=== PATIENT | male | born 1940 | race African-American/Black ===

== ENCOUNTER 2018-03-12 19:51 | Inpatient (IN) | payer MEDICARE, OTHER ==
[~2018-03-12 19:51] MED LIST: ISOVUE-370 76%-LOCM 1 ML ONE
[2018-03-12 20:07] LABS: #Monocytes 0.2 thou/uL (0.11-0.59); #Neutrophils 2.2 thou/uL (1.40-6.50); %Basophils 0.9 % (0.0-1.0); %Eosinophils 0.3 % (0.0-10.0); %Lymphocytes 44.4 % (21.0-51.0); %Monocytes 5.2 % (0.0-10.0); %Neutrophils 49.1 % (42.0-75.0); Hemoglobin 10.9 g/dL (14.0-18.0); Mean Corpuscular HGB CONC 32.3 g/dL (32.0-36.0); Mean Corpuscular Hemoglobin 31.3 pg (27.0-31.0); Mean Corpuscular Volume 96.8 fL (78.0-98.0); Mean Platelet Volume 8.2 fL (7.4-10.4); Platelet Count 125 thou/uL (130-400); RBC Distribution Width 14.4 % (11.5-14.5); Red Blood Cell (RBC) Count 3.49 mill/uL (4.70-6.10); White Blood Cell (WBC) Count 4.5 thou/uL (4.8-10.8)
[2018-03-12 20:11] LABS: PTT 26.2 SEC (22.9-36.1); Prothrombin Time 13.4 SEC (12.0-14.7)
[2018-03-12 20:20] LABS: ALT (SGPT) 46 U/L (8-55); AST (SGOT) 28 U/L (5-34); Albumin 3.9 g/dL (3.4-4.8); Alkaline Phosphatase 214 U/L (40-150); Anion Gap 10 mmol/L (10-20); BUN (Urea Nitrogen) 18 mg/dL (8.4-25.7); Bilirubin, Total 0.2 mg/dL (0.2-1.2); Calc. Creatinine Clearance 0 mL/min (70-130); Calcium 8.9 mg/dL (7.8-10.44); Carbon Dioxide 22 mmol/L (23-31); Chloride 103 mmol/L (98-107); Estimated GFR-MDRD 29; Globulin 2.8 g/dL (2.4-3.5); Potassium 5.4 mmol/L (3.5-5.1); Protein, Total 6.7 g/dL (5.8-8.1); Sodium 130 mmol/L (136-145)
[2018-03-12 20:22] LABS: CKMB 0.7 ng/mL (0-6.6); Troponin I 0.015 ng/mL (< 0.028)
[2018-03-12 20:23] LABS: Glucose 741 mg/dL (83-110)
[2018-03-12 20:43] LABS: Base Excess-Venous -3.4 mmol/L (0 (+/- 2.5)); CO2 Tension (PvCO2) 40.1 mmHg (41.0-51.0); Calcium, Ionized 1.27 mmol/L (1.12-1.32); Hemoglobin - Calc 10.9 g/dL (12.0-18.0); O2 Tension (PvO2) 40.7 mmHg (35.0-45.0); Potassium 5.1 mmol/L (3.4-4.7); T. Carbon Dioxide 23.2 mmol/L (1.0-85.0); pH (Venous) 7.347 (7.35-7.45); vO2 Saturation-calc 73.3 % (94-98)
[2018-03-12] MEDS ORDERED: niCARdipine 20MG In NaCl 20 MG/200 ML BAG ONE (21:00)
--- NOTE | 2018-03-12 21:24 | CT ---
NONCONTRAST HEAD CT 03/12/18 HISTORY: Right sided weakness and facial droop, aphasia, recent kidney transplant. COMPARISON: None. FINDINGS: No parenchymal hemorrhage. No extra-axial hematoma. No midline shift. Basilar cisterns are patent. Ag e appropriate atrophy. Cortical pate-white matter differentiation is preserved. Ventricles and sulci are patent and symmetric. Calvarium is intact. Adequate aeration of the sinuses and mastoid air cells . IMPRESSION: No acute intracranial process. Results of the study discussed with Dr. Navarrete, 03/12/18 at 7:59 p.m. Code VENESSA POS: [facility]
--- NOTE | 2018-03-12 22:17 | CT ---
CT ANGIOGRAM OF THE HEAD AND NECK: 03/12/18 HISTORY: Right sided weakness. Facial droop. Aphasia. Recent kidney transplant. Evaluate for thrombus. COMPARISON: None. TECHNIQUE: CT angiogram of the head and neck are performed in the axial plane. Three dimensional reformatted misha ges are submitted for interpretation. FINDINGS: POSTCONTRAST HEAD CT: There is an enhancing lesion along the right frontal extra-axial space most compatible with a meningi lake measuring 1.5 x 0.5 cm. No significant mass effect. Cortical pate-white matter differentiation is preserved. No evidence of hydrocephalus. Bilateral ocular lenses are appropriately located. Both lenses are transplanted lenses. Adequate aera tion of the sinuses and mastoid air cells. Aerodigestive tract is patent. No obvious mucosal abnormality. Limited evaluation of the oral cavity. Midline fatty raphae of the tongue is preserved. Unremarkable epiglottis. No prevertebral soft tissu e swelling. Symmetric attenuation of the sternocleidomastoid muscles. Symmetric attenuation of the parotid and submandibular glands. Unremarkable thyroid gland. No evidence of lymphadenopathy by size criteria. There are varying degrees of central canal stenosis and foraminal narrowing on the basis of degenerat belkys change. Cervical spine vertebral body height is maintained. No fracture. Upper mediastinum and axel ng apices are otherwise unremarkable. CT ANGIOGRAM: There is atherosclerosis of a nonaneurysmal thoracic aorta. The origin of the right carotid artery is unremarkable. The right common carotid artery, carotid bifurcation, and internal carotid artery have an overall appropriate enhancement and luminal diameter. Minimal atherosclerosis in the right caroti d bulb and distal common carotid artery. No significant stenosis based upon NASCET criteria. LEFT CAROTID: The origin of the left carotid artery has appropriate enhancement and luminal diameter. The left comm on carotid artery, carotid bifurcation, and internal carotid artery have overall appropriate enhancem ent and luminal diameter. Minimal atherosclerosis in the distal common carotid artery. No significant stenosis based upon NASCET criteria. Bilateral subclavian arteries are unremarkable. Both vertebral arteries are patent throughout their c ourse in the neck and are essentially codominant. CT ANGIOGRAM OF THE HEAD: There is symmetric enhancement and luminal diameter of the distal cervical and intracranial internal carotid arteries. Mild atherosclerosis in both cavernous segments and pericline segments is noted wit hout significant stenosis. ANTERIOR CIRCULATION: Symmetric enhancement and luminal diameter of the A1 and M1 segments. Proximal MCA branches are essen tially symmetric. A1 segments and possible A2 segments are patent. POSTERIOR CIRCULATION; Both intracranial vertebral arteries are unremarkable. Both PICA artery origins are patent. Both sherif tebral arteries supply a normal appearing basilar artery. No significant stenosis. The left and right P1 segments are symmetric. IMPRESSION: Unremarkable CT angiogram of the head and neck. Results of study discussed with Dr. Darrell Thomas, 03/12/18 at 9:07 p.m. POS: [facility]
[2018-03-12 22:30] LABS: Bilirubin Negative (Negative); Blood, Urine Negative (Negative); Clarity CLEAR (Clear); Glucose, Urine (Dipstick) >=1000 mg/dL (Negative); Leukocyte Negative (Negative); Nitrite Negative (Negative); Protein, Urine (Dipstick) Negative (Neg-Trace); Specific Gravity, Urine 1.028 (1.002-1.036); Urobilinogen 0.2 mg/dL (0.2-1.0); pH, Urine 6.5 (5.0-9.0)
[2018-03-12] MEDS ORDERED: Ondansetron HCl/PF 4 MG/2 ML Vial ONE (22:56)
[2018-03-13] MEDS ORDERED: Ondansetron HCl/PF 4 MG/2 ML Vial IVP PRN (01:51)
[2018-03-13] MEDS ORDERED: Ondansetron ODT 4 MG TAB SL PRN (01:51)
[2018-03-13] MEDS ORDERED: Sodium Chloride 0.9% 1,000 ML IV SCH ×4 (01:51→05:15)
[2018-03-13 02:12] VITALS: BMI 25.7
[2018-03-13] MEDS ORDERED: Insulin Regular 300 UNITS/3 ML VIAL SC PRN ×2 (02:57)
[2018-03-13] MEDS ORDERED: Dextrose 5% in Water 1,000 ML IV PRN ×2 (02:57→11:17)
[2018-03-13] MEDS ORDERED: Dextrose 50% Abboject 50 ML SYRINGE SLOW IVP PRN ×2 (02:57→11:17)
[2018-03-13] MEDS ORDERED: Acetaminophen 1,000 MG in Premix Bag 1 BAG IVPB SCH (03:15)
[2018-03-13 03:25] LABS: #Lymphocytes 0.7 thou/uL (1.20-3.40); #Monocytes 0.5 thou/uL (0.11-0.59); #Neutrophils 8.6 thou/uL (1.40-6.50); %Basophils 0.2 % (0.0-1.0); %Eosinophils 0.1 % (0.0-10.0); %Lymphocytes 7.3 % (21.0-51.0); %Monocytes 5.1 % (0.0-10.0); %Neutrophils 87.4 % (42.0-75.0); Hemoglobin 10.4 g/dL (14.0-18.0); Mean Corpuscular HGB CONC 33.9 g/dL (32.0-36.0); Mean Corpuscular Hemoglobin 32.9 pg (27.0-31.0); Mean Corpuscular Volume 97.2 fL (78.0-98.0); Mean Platelet Volume 7.6 fL (7.4-10.4); Platelet Count 144 thou/uL (130-400); RBC Distribution Width 14.5 % (11.5-14.5); Red Blood Cell (RBC) Count 3.15 mill/uL (4.70-6.10); White Blood Cell (WBC) Count 9.8 thou/uL (4.8-10.8)
[2018-03-13] MEDS ORDERED: Diltiazem 125 MG in Sodium Chloride 0.9% 100 ML IVPB SCH ×2 (03:30→03:36)
[2018-03-13 03:46] LABS: Anion Gap 21 mmol/L (10-20); BUN (Urea Nitrogen) 18 mg/dL (8.4-25.7); Calc. Creatinine Clearance 34 mL/min (70-130); Calcium 9.1 mg/dL (7.8-10.44); Carbon Dioxide 14 mmol/L (23-31); Chloride 106 mmol/L (98-107); Estimated GFR-MDRD 33; Magnesium 1.2 mg/dL (1.6-2.6); Potassium 5.5 mmol/L (3.5-5.1); Sodium 135 mmol/L (136-145)
[2018-03-13 03:48] LABS: Glucose 677 mg/dL (83-110)
[2018-03-13 03:49] LABS: Troponin I 0.066 ng/mL (< 0.028)
[2018-03-13] MEDS ORDERED: NPH, Human Insulin Isophane 300 UNIT/3 ML VIAL SC SCH (04:00)
[2018-03-13] MEDS ORDERED: Acetaminophen 325 MG/10.15 ML UDCUP PO PRN (04:03)
[2018-03-13] MEDS ORDERED: Acetaminophen 650 MG Suppository PR PRN (04:03)
[2018-03-13] MEDS ORDERED: Bisacodyl 10 MG SUPP PR PRN (04:03)
[2018-03-13] MEDS ORDERED: Calcium Carbonate 500 MG ChewTAB PO PRN (04:07)
[2018-03-13] MEDS ORDERED: Labetalol HCl 100 MG/20 ML VIAL SLOW IVP PRN (04:09)
[2018-03-13] MEDS ORDERED: Insulin Regular 300 UNITS/3 ML VIAL ONE (04:09)
[2018-03-13] MEDS ORDERED: Acetaminophen 1,000 MG in Premix Bag 1 BAG IVPB PRN (04:26)
[2018-03-13] MEDS ORDERED: Magnesium 2 GM/NS 0.9% 100 ML 2 GM in Premix Bag 1 BAG IVPB SCH (04:30)
--- NOTE | 2018-03-13 04:36 | HP ---
DATE OF ADMISSION: 03/13/2018 PRIMARY CARE PHYSICIAN: Stacy Kay M.D. PRIMARY MIXING AND DISPENSING SUPERVISOR: Brock Schmidt M.D. CHIEF COMPLAINT: Sudden onset of right-sided weakness. HISTORY OF PRESENT ILLNESS: The patient is a 77-year-old -[place] male with hypertension, recent renal transplant, diabetes mellitus type 2, and hyperlipidemia, who presented to the ER by EMS with sudden onset of right-sided weakness and aphasia. He was last seen normal around 6:30 p.m. He had uncontrollable shaking at the onset. No family is present at the bedside for further details. The history obtained from the ER chart. In the emergency room, he received TPA. He was placed on Cardene drip due to uncontrolled blood pressure that was later discontinued. CT scan of the brain was negative for acute findings. His NIH in the emergency room was 24. PAST MEDICAL HISTORY: 1. Diabetes mellitus type 2. 2. Hypertension. 3. Hyperlipidemia. 4. Recent renal transplant. PAST SURGICAL HISTORY: 1. Dialysis access. 2. Bilateral carpal tunnel surgery. 3. Recent renal transplant. 4. Bilateral cataract surgery. ALLERGIES: No known drug allergies. HOME MEDICATIONS: To be verified with the family. FAMILY HISTORY: Mother with diabetes. SOCIAL HISTORY: He quit drinking in 1995, quit smoking in 1995. CODE STATUS: He is FULL CODE. DPOA to be verified. REVIEW OF SYSTEMS: Cannot be obtained from the patient due to current cognitive status. PHYSICAL EXAMINATION: VITAL SIGNS: In the emergency room on arrival showed temperature 97.7, respirations 25, pulse rate of 101 and blood pressure of 157/84 with O2 saturation 100% on room air. GENERAL: A 77-year-old male with altered mentation. Left-sided gaze preference noted. There is right-sided weakness. HEENT: Head atraumatic, normocephalic. Sclerae are anicteric. Left-sided gaze. NECK: Supple, no JVD appreciated. No carotid bruit. No neck stiffness. LUNGS: Showed scattered rales and rhonchi at bases. No wheezing. No accessory muscle use. HEART: S1, S2 present, tachycardic, 2/6 systolic murmur over the mitral area. No heaves or pulsation. ABDOMEN: Soft, bowel sounds present, no rebound or guarding. EXTREMITIES: No edema or calf tenderness. NEUROLOGIC: Could not be done reliably due to current cognitive status. He is spontaneously moving his left side. On the right side, he still has some spontaneous movement, but not against gravity. He withdraws to pain in the right upper extremity, but not to right lower extremity. He had hyperreflexia on the right side. SKIN: Warm and dry. LYMPH NODES: No palpable lymph nodes in the neck. PERIPHERAL VASCULAR: Radial pulses palpable bilaterally. MUSCULOSKELETAL: No joint swelling or tenderness. LABORATORY FINDINGS: CBC showed WBC of 4.5, hemoglobin of 10.9, hematocrit of 33.8, platelet of 125. PT, INR, PTT normal range. Chemistries showed sodium of 130, potassium 5.4, chloride 103, bicarbonate 22, BUN of 18, creatinine 2.59 and glucose of 741, magnesium 1.2, troponin of 0.015, repeat troponin 0.066. CT scan of the brain by my review was negative for acute CVA. EKG by my review showed sinus tachycardia without significant ST-T wave changes. Repeat EKG showed sinus tachycardia with heart rate in 130s to 140s. Urinalysis was negative. CT angiogram of the head and neck were essentially negative. IMPRESSION: 1. 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 2. Uncontrolled diabetes mellitus type 2 with suspected DKA. Ketones pending 3. Hypertension. 4. Chronic kidney disease stage 3 with recent renal transplant. 5. Hypomagnesemia with magnesium of 1.2. 6. Elevated troponin in the indeterminate range secondary to acute cerebrovascular accident/demand ischemia. 7. Hyponatremia with sodium 130. 8. Hyperkalemia with potassium 5.5. 9. Metabolic acidosis with bicarbonate of 14. 10. Supraventricular tachycardia. 11. Chronic anemia, probably secondary to renal insufficiency. 12. Hyperlipidemia. PLAN: The patient will be monitored in the Intensive Care Unit. Post-TPA protocol will be followed. We will consult Neurology. We will repeat CT brain in a.m. We will start him on low dose Cardizem drip. We will keep his blood pressure between 150-180 systolic. We will replace magnesium. We will recheck potassium in a.m. We will check lactic acid and ketones due to metabolic acidosis. We will repeat troponin in a.m. Nephrology will be consulted. We will get a chest x-ray to rule out aspiration as patient is running fever with the last temperature of 100.9. Insulin drip. Start low dose Cardizem drip for tachyarrhythmia. We will confirm all of his home medications. Deep venous thrombosis prophylaxis after 24 hours of TPA. Gastrointestinal prophylaxis. We will discuss the plan of care with the family when they arrive. BIJAN
[2018-03-13] MEDS ORDERED: cefTRIAXone\\ROCEPHIN 1 GM in Sodium Chloride 0.9% 100 ML IVPB SCH (05:00)
[2018-03-13 05:13] LABS: Lactic Acid 3.3 mmol/L (0.5-2.2)
[2018-03-13 07:31] LABS: Anion Gap 16 mmol/L (10-20); BUN (Urea Nitrogen) 17 mg/dL (8.4-25.7); Calc. Creatinine Clearance 36 mL/min (70-130); Calcium 8.4 mg/dL (7.8-10.44); Carbon Dioxide 15 mmol/L (23-31); Chloride 114 mmol/L (98-107); Estimated GFR-MDRD 36; Glucose 393 mg/dL (83-110); Potassium 4.6 mmol/L (3.5-5.1); Sodium 140 mmol/L (136-145)
[2018-03-13 07:38] LABS: Troponin I 0.284 ng/mL (< 0.028)
[2018-03-13 07:41] VITALS: TEMP 103.2
[2018-03-13] MEDS ORDERED: MEROPENEM 1 GM/50 ML 1 GM in Premix Bag 1 BAG IVPB SCH (08:00)
[2018-03-13] MEDS ORDERED: Famotidine/PF 20 mg/2ml Vial SLOW IVP SCH (09:00)
--- NOTE | 2018-03-13 09:39 | CT ---
NONCONTRASTED CT HEAD: DATE: 03/13/18. HISTORY: Acute CVA, post TPA. COMPARISON: 03/12/18. FINDINGS: There is a small focus of increased density seen in a parafalcine location which is just anterior and superior to the level of the left lateral ventricle. This measures approximately 8 mm and likely re presents a small focus of parenchymal hemorrhage. This was not present on the prior exam. No additi onal intraparenchymal or extraaxial hemorrhage is seen. There is no evidence of an acute cortical infarction, mass effect, or midline shift. Mild cerebral v olume loss is again present. No other interval change. IMPRESSION: 1. Small focus of hemorrhage in the left frontal lobe in a left parafalcine location just superior a nd anterior to the body of the left lateral ventricle. 2. No acute cortical infarction is visualized. 3. Mild cerebral volume loss. 4. The above findings concerning small focal hemorrhage were discussed with [facility] CCU nurse, on at 0854 hours. CODE CR POS: [facility]
--- NOTE | 2018-03-13 10:04 | PRG ---
DATE OF SERVICE: 03/13/2018 SUBJECTIVE: Mr. Ross is a 77-year-old black male with known history of ESRD and was on maintenance hemodialysis and recently had a cadaveric renal transplant done at [facility]. He pres ented at the ER for sudden onset of right-sided weakness. The feeling is that he had an acute CVA. He received TPA. Due to the uncontrolled blood pressure, he was also started on Cardene drip. We are being consulted for management of his renal transplant as well as immunosuppressive. I examin ed the patient this morning, he is not responding to my verbal questioning. The case has been discussed with the [facility] renal transplant team. They wanted the patient transferred to [facility] as soon as possible. REVIEW OF SYSTEMS: Not obtainable since the patient is unresponsive to verbal stimuli. HOME MEDICATIONS: Included the following, valganciclovir 450 mg every other day, prednisone 5 mg onc e a day, tramadol 1 tab q.6 hours p.r.n., tacrolimus 4 mg p.o. b.i.d., Bactrim single strength 1 tab each a day, sodium bicarbonate 5 grams p.o. daily, phosphorus 250 mg t.i.d., rifampin 600 mg daily, S tarlix 60 mg p.o. b.i.d., Myfortic 540 mg twice a day, metoprolol succinate 25 mg p.o. b.i.d., Lantus 10 units subQ at bedtime, allopurinol 150 mg once a day, vitamin D3 of 2000 international units ever y day, vitamin B complex 1 tab every day. CURRENT HOSPITAL MEDICATIONS: Includes meropenem 1 gram q.12 hours, he is on diltiazem drip at 5 mg per hour, Pepcid 20 mg IV daily status post TPA, labetalol 10 mg IV q.2 hours p.r.n. PAST MEDICAL HISTORY: 1. Type 2 diabetes mellitus status post ESRD. 2. Hypertension. 3. Hyperlipidemia. 4. History of type 2 diabetes mellitus 5. Gout. PAST SURGICAL HISTORY: 1. Recent status post cadaveric renal transplant. 2. Status post AV fistula placement. 3. Status post bilateral carpal tunnel surgery. 4. Status post cuffed hemodialysis catheter placement. 5. Status post upper and lower GI endoscopy. 6. Status post bilateral eye surgery. SOCIAL HISTORY: The patient lives in [place]. 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 He is a , 3 chi ldren. Smoked for 20 years 1 pack a day. Education: 9th grade. No alcohol, no drug abuse status p ost blood transfusion. FAMILY HISTORY: No family history of ESRD. ALLERGIES: None. TRAUMA: None. IMMUNIZATIONS: Up to date. HOSPITALIZATION: Please see past medical history. PHYSICAL EXAMINATION: VITAL SIGNS: Blood pressure 118/65, heart rate 143, respiratory rate 27, pulse ox 100%. GENERAL: Patient is noted to be unresponsive to my verbal stimuli. SKIN: Adequate turgor. HEENT: He has pinkish conjunctivae, anicteric sclerae. NECK: No neck mass, no carotid bruits, no JVD. LUNGS: Clear breath sounds. HEART: Tachycardic, no murmur, no gallops or rubs. ABDOMEN: Globular, soft, nontender, no masses. EXTREMITIES: No edema. NEUROLOGIC: Patient is unresponsive. He does have a right-sided weakness with left facial droop. P ositive for left-sided tremors. IMAGIN. Initial CT scan of the brain on admission 03/12/2018 was negative. There was no acute intracrani al process at that time. 2. On 03/12/2018, CT angiography was said to have been unremarkable. 3. On 03/13/2018, CT scan of the brain currently pending. ASSESSMENT AND PLAN: 1. Acute cerebrovascular accident with right-sided weakness -- Patient is status post TPA. Neurosjohn valdez is following as well as Neurology. Repeat CT scan of the brain will be done. 2. Status post cadaveric renal transplant -- I would suggest we continue current immunosuppressive r egimen for the moment. Case has been discussed with [facility] renal transplant program. They are requesting for us to transfer the patient as soon as [facility]. We are trying to prepare mahogany machuca. Overall, prognosis with this patient remains guarded.
--- NOTE | 2018-03-13 10:50 | EKG ---
Test Reason : STAT Blood Pressure : / mmHG Vent. Rate : 143 BPM Atrial Rate : 143 BPM P-R Int : 114 ms QRS Dur : 072 ms QT Int : 302 ms P-R-T Axes : 059 060 085 degrees QTc Int : 466 ms Sinus tachycardia Abnormal ECG When compared with ECG of 27-SEP-2015 10:07, Vent. rate has increased BY [address] now depressed in Anterolateral leads Nonspecific T wave abnormality now evident in Inferior leads Nonspecific T wave abnormality, worse in Lateral leads Confirmed by ROCCO BYNUM, DR. Ojeda ([id number]) on 03/13/2018 10:50:13 AM Referred By: RAMANDEEP Confirmed By:DR. Lynette VALIENTE MD
[2018-03-13] MEDS ORDERED: D5 1/2 NS w/20 mEq KCL 0 ML ONE (11:13)
[2018-03-13] MEDS ORDERED: Potassium Chloride 40 MEQ in Premix Bag 1 BAG IVPB PRN (11:17)
[2018-03-13] MEDS ORDERED: HumaLOG 300 UNITS/3 ML VIAL SC PRN (11:17)
[2018-03-13] MEDS ORDERED: Potassium Phosphate 15 MMOL in Sodium Chloride 0.9% 250 ML 250 ML IV PRN (11:17)
[2018-03-13] MEDS ORDERED: Magnesium 2 GM/NS 0.9% 100 ML 2 GM in Premix Bag 1 BAG IVPB PRN (11:17)
[2018-03-13] MEDS ORDERED: Magnesium Oxide 400 MG TAB PO PRN ×2 (11:17)
[2018-03-13] MEDS ORDERED: Potassium Chloride 20 MEQ TAB PO PRN (11:17)
[2018-03-13] MEDS ORDERED: Potassium Phosphate 9 MMOL in Sodium Chloride 0.9% 100 ML IVPB PRN (11:17)
[2018-03-13] MEDS ORDERED: Potassium Chloride 40 MEQ in Sodium Chloride 0.9% 250 ML 250 ML IVPB PRN (11:17)
[2018-03-13] MEDS ORDERED: Potassium Phosphate 12 MMOL in Sodium Chloride 0.9% 250 ML 250 ML IV PRN (11:17)
[2018-03-13 11:18] LABS: T4 3.5 ug/dL (4.87-11.72)
[2018-03-13] MEDS ORDERED: Sodium Chloride 0.9% 1,000 ML IV PRN ×4 (11:18)
[2018-03-13] MEDS ORDERED: D5 1/2 NS w/20 mEq KCL 1,000 ML IV PRN (11:18)
[2018-03-13] MEDS ORDERED: NS 0.9% w/ 20 MEQ KCL 1,000 ML/1,000 ML BAG IV PRN ×2 (11:18)
[2018-03-13] MEDS ORDERED: Dextrose 5 %-0.45 % NaCl 1,000 ML IV PRN (11:18)
--- NOTE | 2018-03-13 11:22 | PDOC.EVN ---
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
[2018-03-13] MEDS ORDERED: Insulin Glargine 5 UNITS in Pre-Filled Syringe 1 EACH SC SCH ×2 (11:30→12:45)
--- NOTE | 2018-03-13 11:56 | CON ---
DATE OF CONSULTATION: 03/13/2018 HISTORY: Yaw Ross is a 77-year-old black male who has been evaluated by Dr. Delvalle in the past in the office. He was initially seen in 02/2017 for evaluation prior to a renal transplant. He underwent Lexiscan Cardiolite testing which was normal with no evidence of ischemia or fixed defect. When he was seen in 06/2017, he complained that he would have heart rate in the 130s at the time that he was at dialysis. No specific etiology of this tachycardia or the specific rhythm has been found out to this point. In 10/2017, an echocardiogram revealed ejection fraction of 60-65% with grade I diastolic dysfunction, mild left atrial enlargement, mild tricuspid regurgitation, mild aortic regurgitation with mild aortic redilatation at 3.9 cm. He was last seen in 10/2017. He has since undergone a renal transplant and was brought to the emergency room last night with right hemiparesis and aphasia. Head CT was unremarkable and he underwent t-PA infusion. His symptoms started at approximately 6:30 p.m. At the present time, he continues to remain aphasic and cannot give any specific history. PAST MEDICAL HISTORY: Diabetes, hypercholesterolemia, hypertension, end-stage renal disease on dialysis and now has been transplanted. OPERATIONS: Renal transplant, cataract surgery, carpal tunnel surgery. MEDICATIONS: Allopurinol 150 daily, Folbic 1 daily, Pepcid 20 mg at bedtime, vitamin D3, Lantus 10 units at bedtime, metoprolol 25 b.i.d., Starlix 60 mg b.i.d., Myfortic 540 b.i.d., prednisone 5 mg daily, rifampin 600 daily, sodium bicarbonate 5 grams daily, Bactrim daily, tacrolimus 4 mg b.i.d., tramadol p.r.n., valganciclovir 450 mg every other day. ALLERGIES: None. SOCIAL HISTORY/FAMILY HISTORY/REVIEW OF SYSTEMS: Unobtainable at this part with the patient's aphasia. PHYSICAL EXAMINATION: VITAL SIGNS: Blood pressure 118/65, pulse of 143. On the monitor. This appears to be sinus tachycardia as well as on his EKG. HEENT: Unremarkable. CHEST: Clear. CARDIAC: S1 and S2 are normal, without any S3, S4 or murmurs. ABDOMEN: Normal bowel sounds. EXTREMITIES: Revealed no clubbing, cyanosis or edema. NEUROLOGIC: The patient is aphasic and I could not get him to follow any commands. LABORATORY: Head CT reveals a small focus of hemorrhage in left frontal lobe. There is no acute cortical infarction visualized. Hemoglobin 10.4, hematocrit 30.6, white count 9800, platelets 144,000. INR 1.0. Sodium 140, potassium 4.6, chloride 114, carbon dioxide 15, BUN 17, creatinine 2.18, glucose 393. On admission, blood sugar was 741. Troponin I is up to 0.284. IMPRESSION: 1. Sinus tachycardia with rates in the 140s. This does not appear to be due to atrial flutter or atrial tachycardia. He has had normal left ventricular function with ejection fraction of 60-65% on echo in 10/2017. 2. Left hemispheric cerebrovascular accident, treated with t-PA; however, he continues to have aphasia and dense right hemiparesis. 3. Status post renal transplant. 4. Hypertension. 5. Hypercholesterolemia. 6. Diabetes. PLAN: The patient's metoprolol should be resumed as soon as blood pressure will allow. Other causes for sinus tachycardia should be evaluated such as sepsis, hyperthyroidism, anemia, etc. We will follow the patient with you. BIJAN
[2018-03-13 12:22] LABS: Anion Gap 13 mmol/L (10-20); BUN (Urea Nitrogen) 17 mg/dL (8.4-25.7); Calc. Creatinine Clearance 40 mL/min (70-130); Calcium 8.9 mg/dL (7.8-10.44); Carbon Dioxide 16 mmol/L (23-31); Chloride 118 mmol/L (98-107); Estimated GFR-MDRD 40; Glucose 129 mg/dL (83-110); Potassium 4.4 mmol/L (3.5-5.1); Sodium 143 mmol/L (136-145)
[2018-03-13 12:25] VITALS: BP 139/65
[2018-03-13 12:30] LABS: Lactic Acid 2.5 mmol/L (0.5-2.2)
[2018-03-13] MEDS ORDERED: Heparin 5,000 UNITS/ML VIAL SC SCH (21:00)
[2018-03-13] MEDS ORDERED: Aspirin 300 MG Suppository PR SCH (21:00)
[2018-03-14] MEDS ORDERED: Insulin Glargine 5 UNITS in Pre-Filled Syringe 1 EACH SC SCH (09:00)
--- NOTE | 2018-03-14 09:00 | OP ---
DATE: 03/13/18 PROCEDURE: Fiberoptic intubation. The patient did not require sedation. Bite block was placed in his mouth. Bronchoscope was introduced into his mouth with a 7.5 endotracheal tube over the scope. His upper airway was remarkable for copious amounts of saliva that he had not cleared, this was all suctioned until clear. Once he was cleared, I could visualize his vocal cords easily. His trachea was cannulated followed by an endotracheal tube secured at 24 cm. This was above the main moshe. His proximal trachea was full of secretions that resembles the appearance of saliva , but had the appearance was aspirated saliva. This was all suctioned clear as well as distal airway and no retained foreign bodies or aspirated food. I was then connected to mechanical ventilation with pressure control ventilation. He tolerated the procedure well. There was no hypoxemia or hypotension during the procedure. BIJAN
--- NOTE | 2018-03-14 09:00 | CON ---
DATE OF CONSULTATION: 03/13/2018 HISTORY OF PRESENT ILLNESS: Yaw Ross is a 77-year-old male who has recently undergone renal transplantation. He presented to the hospital late last night with right-sided weakness and aphasia, subsequently was given tPA. He was felt to be hypertensive and started on a Cardene drip. He has been admitted to the Critical Care Unit. I was consulted. He is unable to give a history. PAST MEDICAL HISTORY: Remarkable for diabetes, hypertension, lipid disorder, renal failure, vascular access procedures, carpal tunnel surgery, cataract surgery. SOCIAL HISTORY: Former smoker, former drinker. Does not do either and has been for many years. FAMILY HISTORY: Positive for diabetes. REVIEW OF SYSTEMS: 10 point system review completed, otherwise negative ALLERGIES: No reported drug allergies. PHYSICAL EXAMINATION: GENERAL: He is in no distress, although he is totally unresponsive. He would open his eyes. He is ignoring his right side. VITAL SIGNS: Heart rate was 112-120. When I had seen him, blood pressure was in the 130s, respiratory rate was in the 20s. HEENT: Pupils react. Sclerae are anicteric. He has a left deviated gaze. NECK: Supple without lymphadenopathy. LUNGS: Remarkable for mild rhonchi bilaterally. HEART: Regular rhythm. ABDOMEN: Soft and nontender. No guarding, no rigidity. EXTREMITIES: Without asymmetry or edema. He removed his left side localizing slightly to a sternal rub. He opened his eyes to sternal rub looking left. He did not move his right side at all. LABORATORY DATA: White count 9.8, hemoglobin 10.4, platelets 144,000. Sodium 143, potassium 4.4, chloride 118, bicarbonate 16, BUN 17, creatinine 1.96. Intake and output are remarkable for positive 786 mL fluid balance. It was anticipated to be transferred back to his transplant center. I felt it was unwise to transporting without airway protection, so recommended intubation. He will continue with post-tPA protocol care until he is transferred. Critical care time was 30 minutes. [facility]USJanelle
[2018-03-14] MEDS ORDERED: Acetaminophen 650 MG Suppository PR PRN (10:00)
[2018-03-14] MEDS ORDERED: Acetaminophen 325 MG/10.15 ML UDCUP PO PRN (10:00)
--- NOTE | 2018-03-14 11:20 | DIS ---
DISCHARGE DIAGNOSES: 1. Diabetic ketoacidosis, resolved. 2. Ischemic stroke status post TPA with subsequent intracranial hemorrhage. 3. An 8 mm intracranial hemorrhage with decreased mentation. 4. Mechanical ventilation secondary to neurological damage. 5. 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 6. End-stage renal disease, status post kidney transplant. 7. Elevated troponin, likely secondary to demand ischemia. 8. Supraventricular tachycardia, resolved. 9. Metabolic acidosis, resolved. 10. Hypomagnesemia. BRIEF SUMMARY OF HOSPITAL COURSE: This is a 77-year-old male with a history of recent renal transpla nt for end-stage renal disease, hyperlipidemia, hypertension, type 2 diabetes, who was initially admi tted with a chief complaint of right-sided weakness. Also, on admission, the patient was noted to be in DKA with elevated beta hydroxybutyrate. In the emergency department, he was initially placed on a Cardene drip for uncontrolled hypertension which has since been discontinued without further issues with hypertension. Initial CTA did not demo nstrate any acute finding. He was given TPA with an NIH scale of 24 in the emergency room for his ri ght-sided weakness. Please see the initial history and physical for full details surrounding his admission. The patient was treated with insulin drip and placed on DKA protocol for his hyperglycemia with metab olic acidosis. Serial BMPs were completed at the time of discharge. The patient's hyperglycemia and DKA appeared to be resolved. The patient is being transitioned to a subcutaneous regimen at the claudia e of discharge. The patient was monitored in the intensive care unit post-TPA protocol. Neurology was consulted. Th e patient had a repeat CT of the brain completed the following morning which unfortunately demonstrat ed 8 mm intracranial hemorrhage described as a "small focus of hemorrhage in the left frontal lobe an d the left parafalcine location just superior and anterior to the body of the left lateral ventricle. " The patient was also subsequently intubated for airway protection due to further decrease in menta tion prior to transport to [facility] for further evaluation and treatment. Regarding the patient's hypertension, he was initially placed on a Cardene drip which was able to be off titrated. The patient's elevated troponin was felt to be secondary to a component of demand ischemia from his a cute stroke. CONSULTATIONS: 1. Cardiology. 2. Nephrology. 3. Critical Care. PATIENT'S CONDITION AT DISCHARGE: At the time of discharge, the patient is intubated and sedated. H e is proceeding via [facility] to go [facility]. MEDICATION RECONCILIATION: Please see the EMR for full details. The patient is currently on multipl e conscious sedation, analgesia. The patient has been discontinued from insulin protocol. He is on maintenance normal saline Cardene drip. FOLLOWUP: The patient's followup and discharge will be determined by his next facility. Greater than 30 minutes spent coordinating discharge for this patient.
--- NOTE | 2018-03-15 11:37 | EKG ---
Test Reason : Blood Pressure : / mmHG Vent. Rate : 131 BPM Atrial Rate : 133 BPM P-R Int : 142 ms QRS Dur : 072 ms QT Int : 330 ms P-R-T Axes : 072 061 078 degrees QTc Int : 487 ms Sinus tachycardia Possible Left atrial enlargement Abnormal ECG Confirmed by MICHAEL COMER DO ([id number]), staff editor NICKO LOPEZ ([id number]) on 03/15/2018 11:37:14 AM Referred By: Confirmed By:MICHAEL COMER DO
--- NOTE | 2018-03-15 11:37 | EKG ---
Test Reason : Blood Pressure : / mmHG Vent. Rate : 111 BPM Atrial Rate : 111 BPM P-R Int : 164 ms QRS Dur : 074 ms QT Int : 342 ms P-R-T Axes : 061 054 067 degrees QTc Int : 465 ms Sinus tachycardia Possible Left atrial enlargement Borderline ECG Confirmed by MICHAEL COMER DO ([id number]), acquisition editor NICKO LOPEZ ([id number]) on 03/15/2018 11:37:01 AM Referred By: Confirmed By:MICHAEL COMER DO
== END 2018-03-13 12:57 | disposition critical access hospital (66) | DRG 64 ==
LOC: ERS 19:51 → CCU 03-13 01:51
PROVIDERS: ADMIT Internal Medicine; ATTEND Internal Medicine
PROC: 0CHY8BZ Insertion of Airway into Mouth and Throat, Via Natural or Artificial Opening Endoscopic (ICD-10-PCS; principal; 2018-03-13)
PROC: 5A1935Z Respiratory Ventilation, Less than 24 Consecutive Hours (ICD-10-PCS; 2018-03-13)
DX: I61.1 Nontraumatic intracerebral hemorrhage in hemisphere, cortical (principal); N18.6 End stage renal disease; E11.10 Type 2 diabetes mellitus with ketoacidosis without coma; G81.91 Hemiplegia, unspecified affecting right dominant side; Z94.0 Kidney transplant status; E87.1 Hypo-osmolality and hyponatremia; E87.2 Acidosis; I47.1 Supraventricular tachycardia; R47.01 Aphasia; I12.0 Hypertensive chronic kidney disease with stage 5 chronic kidney disease or end stage renal disease; Z92.82 Status post administration of tPA (rtPA) in a different facility within the last 24 hours prior to admission to current facility; E11.22 Type 2 diabetes mellitus with diabetic chronic kidney disease; Z99.2 Dependence on renal dialysis; E78.00 Pure hypercholesterolemia, unspecified; E83.42 Hypomagnesemia; E87.5 Hyperkalemia; Z79.4 Long term (current) use of insulin
CPT/HCPCS: 36415; 36416; 36556; 51702; 70450; 70496; 70498; 80048; 80053; 81003; 82010; 82330; 82553; 82803; 83605; 83735; 84436; 84443; 84484; 85025; 85610; 85730; 87040; 87086; 93005; 93010; 93306; 94002; 96361; 96365; 96366; 96367; 96375; J0131; J0696; J1815; J2185; J2405; J2997; J3475; J7050